=== PATIENT | female | born 1985 | race Caucasian/White ===

== ENCOUNTER 2025-02-01 00:18 | Emergency (ER) | payer BC ==
[~2025-02-01] VITALS: Ht 170.2 cm; Wt 81.0 kg
[2025-02-01 00:38] VITALS: O2SAT 96
[2025-02-01 00:42] VITALS: BP 117/61; PULSE 79; RESP 16; TEMP 36.8; O2SAT 100
[2025-02-01] MEDS: DIPHENHYDRAMINE 25MG CAPSULE PO ONE (01:37)
[2025-02-01] MEDS: DEXAMETHASONE 10 MG/ML VIAL PO ONE (01:37)
[2025-02-01] MEDS ORDERED: DIPH25CA83 MT (02:02)
== END 2025-02-01 02:29 | disposition home or self-care (01) ==
LOC: ER 00:18
DX: L50.9 Urticaria, unspecified (principal); Z79.52 Long term (current) use of systemic steroids
CPT/HCPCS: 99283; Q0163; J1100; Z7610 ×2